=== PATIENT | male | born 1975 | race Caucasian/White ===

== ENCOUNTER 2023-11-28 12:05 | Emergency (ER) | payer MEDICARE, SELFPAY ==
[2023-11-28] VITALS (11 sets, daily range): BP systolic 118–137; BP diastolic 68–88; PULSE 55–71; RESP 14; TEMP 36.7; O2SAT 96–99
--- NOTE | 2023-11-28 12:24 | DI.CT.S_ITS ---
P 0 ROCEDURE: CT ABDOMEN PELVIS W CON INDICATIONS: RLQ ABD PAIN, N/V TECHNIQUE: After the administration of intravenous contrast, axial sections acquired from the lung bases to the pubic symphysis. Coronal and sagittal reformats were performed. For radiation dose reduction, the following was used: automated exposure control, adjustment of mA and/or kV according to patient size. COMPARISON: None. FINDINGS: Image quality: Diagnostic. Lower Chest: No significant findings. ABDOMEN: Liver: No solid mass. Gallbladder: No radiopaque gallstones or wall thickening. Biliary ducts: No biliary dilation. Pancreas: No ductal dilation. Spleen: Size is within normal limits. Adrenal Glands: No adrenal nodules. Kidneys and Ureters: No hydronephrosis. No solid mass. No complex renal cystic lesion which requires follow up. Stomach and Bowel: Normal colonic caliber, without significant wall thickening. Normal air containing appendix. Mild diverticulosis without evidence of acute diverticulitis. Peritoneum: No abnormal intraperitoneal fluid. No free air. Ventral Wall: No significant ventral hernia. Abdominal Nodes: No retroperitoneal or mesenteric adenopathy by size criteria. Vessels: Aorta and inferior vena cava are normal in size. PELVIS: Pelvic Organs: Unremarkable. Bladder: No bladder wall thickening, accounting for underdistention. Pelvic Nodes: No enlarged lymph nodes. Miscellaneous: Small fat containing bilateral inguinal hernias. Bones: No aggressive osseous abnormality. IMPRESSION: 1. Normal appendix. No acute appendicitis. 2. No acute abdominal process. 3. Mild diverticulosis. 4. Small bilateral fat containing inguinal hernias Dictated by: Daren Go M.D. on 11/28/2023 at 14:12 Approved by: Daren Go M.D. on 11/28/2023 at 14:21
--- NOTE | 2023-11-28 12:27 | ED.ABDPAIN ---
HPI - Abdominal Pain General Chief Complaint: Abdominal Pain Stated Complaint: RLQ Px Time Seen by Provider: 11/28/23 12:07 Source: patient and EMS Mode of arrival: EMS History of Present Illness HPI narrative: 48-year-old male with no reported past medical history presents by EMS from his place of work for right lower quadrant pain with nausea and vomiting. Patient states he thinks he ate bad egg rolls at his hotel room last night. He states he has a history of food poisoning several years ago, but this feels much worse. Received 8 mg IV Zofran EN route by EMS with improvement in his nausea and vomiting. Patient denies history of intra-abdominal surgeries. Related Data Previous Rx's Medication Instructions Recorded dicyclomine 20 mg tablet 20 mg PO TID #30 tabs 11/28/23 ondansetron 4 mg disintegrating 4 mg PO Q8H PRN nausea and 11/28/23 tablet vomiting #30 tabs promethazine 50 mg tablet 50 mg PO Q4-6H PRN nausea and 11/28/23 vomiting #30 tabs Allergies Allergy/AdvReac Type Severity Reaction Status Date / Time No Known Drug Allergies Allergy Unverified 11/28/23 12:17 Review of Systems Review of Systems Narrative: Negative except as noted above Patient History Smoking Status: Current every day smoker alcohol intake frequency: 0-2 drinks per day Substance Use Type: does not use Exam Initial Vital Signs Initial Vital Signs: Vital Signs Blood Pressure 137/88 11/28/23 12:11 Const: Awake, alert, ill-appearing, nontoxic Cardiac: regular rate, regular rhythm RESP: unlabored, clear bilaterally, no wheezing GI: Soft, right lower quadrant tenderness to deep palpation without rebound or guarding MSK: Atraumatic, full range of motion, pulses equal Skin: Warm, Dry, intact, no rashes Neuro: AO x3, CN II-XII grossly intact, moves all extremities Course Orders Ordered: Discontinued Medications Sodium Chloride (Normal Saline 0.9%) 1,000 mls @ 1,000 mls/hr IV BOLUS ONE Stop: 11/28/23 13:40 Last Infusion: 11/28/23 14:15 Dose: Infused Documented By: Admin: 11/28/23 13:01 Dose: 1,000 mls/hr Documented By: TATUM Metoclopramide HCl (Metoclopramide 10 Mg/2 Ml Inj) 10 mg IV NOW ONE Stop: 11/28/23 12:43 Last Admin: 11/28/23 13:00 Dose: 10 mg Documented By: TATUM Morphine Sulfate (Morphine 4 Mg/Ml Inj) 4 mg IV NOW ONE Stop: 11/28/23 12:58 Last Admin: 11/28/23 13:01 Dose: 4 mg Documented By: TATUM Vital Signs Vital signs: Vital Signs - 8 hr 11/28/23 12:11 11/28/23 12:12 11/28/23 12:14 Temperature 98.1 F Pulse Rate 71 70 Respiratory Rate 14 Blood Pressure 137/88 137/82 Pulse Oximetry 98 99 Oxygen Delivery Method Room Air 11/28/23 12:30 11/28/23 12:30 11/28/23 13:08 Temperature Pulse Rate 59 L 66 Respiratory Rate Blood Pressure 137/88 Pulse Oximetry 96 98 Oxygen Delivery Method 11/28/23 13:30 11/28/23 13:33 11/28/23 13:33 Temperature Pulse Rate 60 62 Respiratory Rate Blood Pressure 129/81 Pulse Oximetry 97 98 Oxygen Delivery Method Room Air MDM - Abdominal Pain Differential Diagnosis Differential diagnosis: Likely abdominal pain, acute appendicitis and calculus of kidney Lab Data 11/28/23 12:00 11/28/23 12:00 Labs: Lab Results 11/28/23 11/28/23 Range/Units 12:00 13:03 WBC 9.1 (4.5-11.0) X10^3/uL RBC 5.23 (4.5-5.9) X10^6/uL Hgb 15.7 (13.5-17.5) g/dL Hct 46.4 (41-53) % MCV 88.8 (80-100) fL MCH 30.1 (26-34) PG MCHC 33.9 (30-36) % RDW 14.1 (11.6-14.8) % Plt Count 226 (150-400) X10^3/uL Neut % (Auto) 60.0 (50-75) % Lymph % (Auto) 27.6 (25-40) % [place] % (Auto) 8.9 (3-14) % Eos % (Auto) 2.7 (2-4) % Baso % (Auto) 0.8 (0-2) % Neut # (Auto) 5500 (6209-2022) /uL Lymph # (Auto) 2500 (0217-2807) /uL [place] # (Auto) 800 (0-900) /uL Eos # (Auto) 200 (0-450) /uL Baso # (Auto) 100 (0-100) /uL Sodium 139 (137-145) mmol/L Potassium 4.0 (3.4-5.1) mmol/L Chloride 110 H (98-107) mmol/L Carbon Dioxide 25 (22-32) mmol/L BUN 17 (9-20) mg/dL Creatinine 0.72 (0.66-1.25) mg/dL Estimated GFR > 60 (>60) mL/min BUN/Creatinine Ratio 23.6 H (6-22) Glucose 110 H (70-100) mg/dL Calcium 9.3 (8.4-10.2) mg/dL Total Bilirubin 0.7 (0.2-1.3) mg/dL AST 27 (17-59) IU/L ALT 25 (<50) IU/L Alkaline Phosphatase 86 (38-126) U/L Total Protein 6.2 L (6.3-8.2) g/dL Albumin 3.5 (3.5-5.0) g/dL Globulin 2.7 (1.7-4.1) g/dL Albumin/Globulin Ratio 1.3 (1.0-2.8) Lipase 51 (23-300) U/L Urine RBC 0-1/hpf (0-5/HPF) Urine WBC 0-1/hpf (0-5/HPF) Ur Squamous Epith Cells 0-1 /hpf (0-5/HPF) Urine Bacteria Occasional (0-1) (None) Urine Mucus 2+ H (Negative) Ur Culture Indicated? Cult not indicated Vol Urine Centrifuged 10ml (spun) Point of care testing: Urine Dip Bedside Urine Glucose Negative Bedside Urine Bilirubin - Negative Bedside Urine Ketone - Negative Urine Specific [place] 1.030 Bedside Urine Occult Blood +/- Bedside Urine pH 5.0 Bedside Urine Protein - Negative Bedside Urine Urobilinogen - Negative Bedside Urine Nitrite - Negative Bedside Urine Leukocytes - Negative Esterase Imaging Data CT scan - abdomen/pelvis: Radiologist's Impression: P 0 ROCEDURE: CT ABDOMEN PELVIS W CON INDICATIONS: RLQ ABD PAIN, N/V TECHNIQUE: After the administration of intravenous contrast, axial sections acquired from the lung bases to the pubic symphysis. Coronal and sagittal reformats were performed. For radiation dose reduction, the following was used: automated exposure control, adjustment of mA and/or kV according to patient size. COMPARISON: None. FINDINGS: Image quality: Diagnostic. Lower Chest: No significant findings. ABDOMEN: Liver: No solid mass. Gallbladder: No radiopaque gallstones or wall thickening. Biliary ducts: No biliary dilation. Pancreas: No ductal dilation. Spleen: Size is within normal limits. Adrenal Glands: No adrenal nodules. Kidneys and Ureters: No hydronephrosis. No solid mass. No complex renal cystic lesion which requires follow up. Stomach and Bowel: Normal colonic caliber, without significant wall thickening. Normal air containing appendix. Mild diverticulosis without evidence of acute diverticulitis. Peritoneum: No abnormal intraperitoneal fluid. No free air. Ventral Wall: No significant ventral hernia. Abdominal Nodes: No retroperitoneal or mesenteric adenopathy by size criteria. Vessels: Aorta and inferior vena cava are normal in size. PELVIS: Pelvic Organs: Unremarkable. Bladder: No bladder wall thickening, accounting for underdistention. Pelvic Nodes: No enlarged lymph nodes. Miscellaneous: Small fat containing bilateral inguinal hernias. Bones: No aggressive osseous abnormality. IMPRESSION: 1. Normal appendix. No acute appendicitis. 2. No acute abdominal process. 3. Mild diverticulosis. 4. Small bilateral fat containing inguinal hernias Dictated by: Daren Go M.D. on 11/28/2023 at 14:12 Approved by: Daren Go M.D. on 11/28/2023 at 14:21 [facility] Narrative Medical decision making narrative: Uncomfortable but nontoxic patient presenting with right-sided abdominal pain with nausea and vomiting. Abdomen is soft patient does have reproducible tenderness in the right lower quadrant. Pain and nausea medications ordered. Laboratory work is reviewed, no significant abnormalities. There was no leukocytosis, sodium 139, potassium 4.0, creatinine 0.72, T bili 0.7, AST 27, ALT 25. CT of the abdomen and pelvis shows normal appendix, no other acute abdominal process. Patient able to tolerate p.o., resting comfortably in bed. Patient relieved to know that his labs and imaging are normal. Patient given medications for pain and nausea to go home with. He requested a printed prescription because he was not from the area and does not know what pharmacy to use. Note for work provided. ED return precautions discussed at bedside Discharge Plan Departure Patient Disposition: Home Clinical Impression: Abdominal pain, Nausea & vomiting Instructions: DI for Abdominal Pain-Adult, Nausea and Vomiting-Adult Activity Restrictions/Additional Instructions: Take Tylenol and ibuprofen as needed for pain. Zofran and Phenergan can be used for nausea Prescriptions: New ondansetron 4 mg tablet,disintegrating 4 mg PO Q8H PRN (Reason: nausea and vomiting) Qty: 30 0RF promethazine 50 mg tablet 50 mg PO Q4-6H PRN (Reason: nausea and vomiting) Qty: 30 0RF dicyclomine 20 mg tablet 20 mg PO TID Qty: 30 0RF Referrals: Miscellaneous,Doctor, MD [Primary Care Provider] - Stand Alone Forms: Patient Portal/API, Work Release Note
[2023-11-28 12:30] LABS: Add Manual Diff / Slide Review NO; Basophils Absolute Auto 100 /uL (0-100); Basophils Percent Auto 0.8 % (0-2); Eosinophils Absolute Auto 200 /uL (0-450); Eosinophils Percent Auto 2.7 % (2-4); Hematocrit 46.4 % (41-53); Hemoglobin 15.7 g/dL (13.5-17.5); Lymphocytes Absolute Auto 2500 /uL (1100-4500); Lymphocytes Percent Auto 27.6 % (25-40); Mean Corpuscular HGB Conc 33.9 % (30-36); Mean Corpuscular Hemoglobin 30.1 PG (26-34); Mean Corpuscular Volume 88.8 fL (80-100); Monocytes Absolute Auto 800 /uL (0-900); Monocytes Percent Auto 8.9 % (3-14); Neutrophils Absolute Auto 5500 /uL (1500-7000); Platelet Count 226 X10^3/uL (150-400); Red Blood Cell Count 5.23 X10^6/uL (4.5-5.9); Red Cell Distribution Width 14.1 % (11.6-14.8); White Blood Cell Count 9.1 X10^3/uL (4.5-11.0)
[2023-11-28 12:48] LABS: Alanine Aminotransferase 25 IU/L (<50); Albumin 3.5 g/dL (3.5-5.0); Albumin Globulin Ratio 1.3 (1.0-2.8); Alkaline Phosphatase 86 U/L (38-126); Aspartate Aminotransferase 27 IU/L (17-59); BUN Creatinine Ratio 23.6 (6-22); Bilirubin Total 0.7 mg/dL (0.2-1.3); Blood Urea Nitrogen 17 mg/dL (9-20); Calcium 9.3 mg/dL (8.4-10.2); Carbon Dioxide 25 mmol/L (22-32); Chloride 110 mmol/L (98-107); Estimated Glomerular Filt Rate > 60 mL/min (>60); Globulin 2.7 g/dL (1.7-4.1); Glucose 110 mg/dL (70-100); HEMOLYSIS 18 (0-50); Lipase 51 U/L (23-300); Sodium 139 mmol/L (137-145); Total Protein 6.2 g/dL (6.3-8.2)
[2023-11-28] MEDS: METOCLOPRAMIDE 10 MG/2 ML INJ IV (13:00)
[2023-11-28] MEDS: MORPHINE 4 MG/ML INJ IV (13:01)
[2023-11-28] MEDS: SODIUM CHLORIDE 0.9% 1,000 ML 1000 ML IV (13:01)
[2023-11-28 13:21] LABS: Bacteria Urine Occasional (0-1); Culture Indicated Urine Cult Not Indicated; Mucus Urine 2+ (Negative); RBC Urine 0-1/HPF (0-5/HPF); Squamous Epithelial Cell Urine 0-1 /HPF (0-5/HPF); Urine Volume 10mL (spun); WBC Urine 0-1/HPF (0-5/HPF)
== END 2023-11-28 15:35 | disposition home or self-care (01) ==
PROVIDERS: Emergency Provider Emergency Medicine
DX: R10.31 Right lower quadrant pain (principal); R11.2 Nausea with vomiting, unspecified
CPT/HCPCS: 36415; 74177; 80053; 81003; 81015; 83690; 85025; 96374; 96375; 99284; J2270; J2765; Q9967